=== PATIENT | female | born 1995 | race Caucasian/White ===

== ENCOUNTER 2017-03-30 08:31 | Emergency (ER) | payer MEDICAID ==
--- NOTE | 2017-03-30 09:58 | ED Physician Chart ---
Chief Complaint/HPI - Patient Information Date Seen:: 03/30/17 Time Seen:: 09:00 Chief Complaint:: diarrhea. History of Present Illness:: location: general quality: diarrhea severity: mild duration: couple of days context: pt with couple of days history of diarrhea and abdominal cramping sensation. , and two children have similar symptoms. no vomiting. children have been diagnosed with viral gastroenteritis. no fever. stool is soft brown no blood. mod factors: none assoc s/s: none hx from pt. Allergies:: Allergies Allergy/AdvReac Type Severity Reaction Status Date / Time No Known Allergies Allergy Verified 03/30/17 09:05 Vitals:: Vital Signs - 8 hr 03/30/17 08:45 Temp 97.4 F HR 87 RR 16 BP 117/61 O2 Sat % 97 Historian:: Patient Review:: Nurse's Note Reviewed Review of Systems - Review of Systems General/Constitutional: No fever, No chills, No weight loss, No weakness, No diaphoresis, No edema, No loss of appetite Skin: No skin lesions, No rash, No bruising Head: No headache, No light-headedness Eyes: No loss of vision, No pain, No diplopia ENT: No earache, No nasal drainage, No sore throat, No tinnitus Neck: No neck pain, No swelling, No thyromegaly, No stiffness, No mass noted Cardio Vascular: No chest pain, No palpitations, No PND, No orthopnea, No edema Pulmonary: No SOB, No cough, No sputum, No wheezing GI: No nausea, No vomiting, Diarrhea, No pain, No melena, No hematochezia, No constipation, No hematemesis G/U: No dysuria, No frequency, No hematuria Musculoskeletal: No bone or joint pain, No back pain, No muscle pain Endocrine: No polyuria, No polydipsia Psychiatric: No prior psych history, No depression, No anxiety, No suicidal ideation Hematopoietic: No bruising, No lymphadenopathy Allergic/Immuno: No urticaria, No angioedema Neurological: No syncope, No focal symptoms, No weakness, No paresthesia, No headache, No seizure, No dizziness, No confusion, No vertigo Past Medical History - Past Medical History Past Medical History: No significant medical hx Family History: None Social History: Non Smoker, No Alcohol, No Drug Use Surgical History: None Psychiatricy History: None Medication: None Family Medical History - Family Member Mother Hx Family Diabetes: Yes Physical Exam - Physical Examination General/Constitutional: Awake, Well-developed, well-nourished, Alert, No distress, GCS 15, Non-toxic appearing, Ambulatory Head: Atraumatic Eyes: Lids, conjuctiva normal, PERRL, EOMI Skin: Nl inspection, No rash, No skin lesions, No ecchymosis, Well hydrated, No lymphadenopathy ENMT: External ears, nose nl, Nasal exam nl, Lips, teeth, gums nl Neck: Nontender, Full ROM w/o pain, No JVD, No nuchal rigidity, No bruit, No mass, No stridor Respiratory: Nl effort/Exclusion, Clear to Auscultation, No Wheeze/Rhonchi/Rales Cardio Vascular: RRR, No murmur, gallop, rubs, NL S1 S2 GI: No tenderness/rebounding/guarding (hyperactive bowel sounds all quadrants, no tenderness), No organomegaly, No hernia, Normal BS's, Nondistended, No mass/ bruits, No McBurney tenderness : No CVA tenderness Extremities: No tenderness or effusion, Full ROM, normal strength in all extremities, No edema, Normal digits & nails Neuro/Psych: Alert/oriented, Normal sensory exam, Normal motor strength, Judgement/insight normal, Mood normal, Normal gait, No focal deficits Misc: normal gait, Normal back, No paraspinal tenderness ED Septic Shock - . Is Septic Shock (SBP<90, OR Lactate>4 mmol\L) present?: No - <6hrs of presentation: Vital Signs: Vital Signs - 8 hr 03/30/17 08:45 Temp 97.4 F HR 87 RR 16 BP 117/61 O2 Sat % 97 Reassessment (Disposition) - Reassessment Reassessment:: pt in stable condition during ER stay. Reassessment Condition:: Unchanged - Diagnosis Diagnosis:: gastroenteritis viral - Aftercare/Follow up Instructions Aftercare/Follow-Up Instructions:: Refer to Discharge Instructions Notes:: go to your doctor for a recheck later this week. please take your children to toolroom check[facility] for recheck tomorrow - Patient Disposition Discharge/Transfer:: Home Condition at Disposition:: Stable
== END 2017-03-30 10:49 | disposition home or self-care (01) ==
LOC: ER 08:31
DX: A08.4 Viral intestinal infection, unspecified (principal)
CPT/HCPCS: Z7502

== ENCOUNTER 2017-05-21 10:58 | Emergency (ER) | payer MEDICAID ==
[2017-05-21] MEDS ORDERED: Sodium Chloride 0.9% 1,000 ML IV ONE (11:28)
[2017-05-21] MEDS ORDERED: Morphine Sulfate 4 mg/mL 1mL Syr ONE ×2 (11:28→14:24)
[2017-05-21 11:31] LABS: URINE BILIRUBIN NEGATIVE (NEGATIVE); URINE BLOOD MODERATE (NEGATIVE); URINE COLOR DARK YELLOW; URINE GLUCOSE (UA) NEGATIVE (NEGATIVE); URINE KETONE 15 mg/dL (NEGATIVE); URINE PROTEIN 30 mg/dL (NEGATIVE)
[2017-05-21 11:32] LABS: URINE BACTERIA MANY /hpf (NONE SEEN); URINE EPITHELIAL CELLS FEW /lpf (FEW)
[2017-05-21 11:33] LABS: URINE WBC 50-100 /hpf (0-5)
[2017-05-21 11:38] LABS: AMPHETAMINE URINE NEGATIVE (NEGATIVE); BARBITURATES URINE NEGATIVE (NEGATIVE); METHADONE URINE NEGATIVE (NEGATIVE)
[2017-05-21 11:42] LABS: HEMATOCRIT 42.4 % (35.0-45.0); HEMOGLOBIN 14.2 gm/dL (11.7-15.5); MEAN CELL VOLUME 88.3 fl (81-100); MEAN CORPUSCULAR HEMOGLOBIN 29.5 pg (27.0-31.0); MEAN CORPUSCULAR HGB CONC 33.4 pg (28.0-36.0); MEAN PLATELET VOLUME 8.9 fl; PLATELET COUNT 213 Th/cmm (150-400); RED BLOOD COUNT 4.81 Mil/cmm (3.80-5.10); RED CELL DISTRIBUTION WIDTH 12.8 % (11.5-20.0)
--- NOTE | 2017-05-21 11:47 | ED Physician Chart ---
Chief Complaint/HPI - Patient Information Date Seen:: 05/21/17 Time Seen:: 11:20 Chief Complaint:: RIGHT FLANK PAIN X 3 DAYS History of Present Illness:: This 22-year-old female presents with a three-day history of pains in the region of the right flank and right upper quadrant. The pains are accompanied by nausea and the patient has forced herself to vomit 1 time. She reports anorexia over the past 3 days. She denies any fever, chills, diaphoresis or diarrhea. Patient denies any dysuria, hematuria, or urinary frequency. The patient's last menstrual period started late and was in early March. No abnormal vaginal bleeding. Family history of gallbladder stones in an aunt. The patient rates the pain as 10 over 10 severity and it is made worse by walking and movement. She reports no relieving factors. Allergies:: Allergies Allergy/AdvReac Type Severity Reaction Status Date / Time No Known Allergies Allergy Verified 03/30/17 09:05 NONE Vitals:: Vital Signs - 8 hr 05/21/17 11:09 Temp 99.2 F HR 83 RR 15 BP 120/70 O2 Sat % 100 Review of Systems - Review of Systems General/Constitutional: No fever, No chills, No weakness, No diaphoresis, No edema, Loss of appetite Skin: No skin lesions, No rash, No bruising Head: No headache, No light-headedness Eyes: No loss of vision, No diplopia ENT: No earache, No sore throat, No tinnitus Neck: No neck pain, No swelling, No mass noted Cardio Vascular: No chest pain, No palpitations, No orthopnea Pulmonary: No SOB, No cough, No sputum GI: Nausea, Vomiting, No diarrhea, Pain, No melena, Constipation, No hematemesis G/U: No dysuria, No frequency, No hematuria Welding Specialist: No vaginal discharge, No abnormal vaginal bleed Musculoskeletal: No bone or joint pain, Back pain Endocrine: No polyuria, No polydipsia Psychiatric: No prior psych history, No depression, No suicidal ideation Hematopoietic: No bruising, No lymphadenopathy Allergic/Immuno: No urticaria, No angioedema Neurological: No syncope, No weakness, No headache, No seizure, No confusion Past Medical History - Past Medical History Past Medical History: No significant medical hx Family History: Other (aunt with gallbladder stones.) Social History: Non Smoker, No Alcohol, No Drug Use, Single, Employed Employment:: Occasional alcohol and marijuana. 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 Surgical History: None Family Medical History - Family Member Mother Ethnicity: Hx Family Cancer: No Hx Family Coronary Artery Disease: No Hx Family Hypertension: No Hx Family Diabetes: Yes Hx Family Seizures: No Hx Family Dementia: No Hx Family HIV: No Physical Exam - Physical Examination General/Constitutional: Well-developed, well-nourished, Alert, Non-toxic appearing, Ambulatory Other Gen/Cons comments:: Patient in moderate to severe distress from her complained of right flank and abdominal pain. Head: Atraumatic Eyes: Lids, conjuctiva normal, PERRL, EOMI Skin: No rash, No skin lesions, No ecchymosis ENMT: External ears, nose nl, Lips, teeth, gums nl, Oropharynx nl, Tonsils nl Neck: Nontender, Full ROM w/o pain, No JVD, No nuchal rigidity, No stridor Respiratory: Nl effort/Exclusion, Clear to Auscultation, No Wheeze/Rhonchi/Rales Cardio Vascular: RRR, No murmur, gallop, rubs, NL S1 S2 Other Cardio Vascular comments:: Good pulses all four extremities. GI: No organomegaly, No hernia, Nondistended, No McBurney tenderness Other GI comments:: The abdomen is nondistended and without surgical scars. I'll sounds are present but decreased. On palpation the patient has epigastric and right upper quadrant tenderness without associated rebound regarding. No tenderness in the right lower quadrant. No enlargement of the liver. Aranda's sign was positive. Full Stack Software Developer sign and psoas signs were both negative. Other comments:: Patient with tenderness in the right CVA to light percussion. Extremities: No tenderness or effusion, Full ROM, normal strength in all extremities, No edema Neuro/Psych: Alert/oriented, Normal sensory exam, Normal motor strength, Judgement/insight normal, Mood normal, Normal gait, No focal deficits Other:: no spinal tenderness. Labs/Radiology/EKG Results - Lab Results Results: Laboratory Tests 05/21/17 05/21/17 05/21/17 11:15 11:15 11:15 Urine Source CLEAN C Urine Color DARK YELLOW Urine Clarity HAZY Urine pH 6.0 Ur Specific Gilbert 1.020 Urine Protein 30 H Urine Glucose (UA) NEGATIVE Urine Ketones 15 H Urine Blood MODERATE H Urine Nitrate POSITIVE H Urine Bilirubin NEGATIVE Urine Urobilinogen 1.0 Ur Leukocyte Esterase LARGE H Urine RBC 2-5 Urine WBC 50-100 H Ur Epithelial Cells FEW Urine Bacteria MANY Urine Test NEGATIVE Urine Opiates Screen NEGATIVE Urine Methadone Screen NEGATIVE Ur Barbiturates Screen NEGATIVE Ur Tricyclics Screen NEGATIVE Ur Phencyclidine Scrn NEGATIVE Amphetamines Screen NEGATIVE U Methamphetamines Scrn NEGATIVE U Benzodiazepines Scrn NEGATIVE U Cocaine Metab Screen NEGATIVE U Cannabinoids Screen POSITIVE H Ultrasound of the right upper quadrant was negative for cholelithiasis. There was no thickening of the gallbladder wall and no. Colic fluid was present. An incidental cyst was noted in the left kidney. Laboratory Tests 05/21/17 05/21/17 05/21/17 11:15 11:15 11:15 WBC RBC Hgb Hct MCV MCH MCHC Differential RDW Plt Count MPV Band Neutrophils % Neutrophils (Manual) Lymphocytes Monocytes Platelet Estimate Sodium Potassium Chloride Carbon Dioxide Anion Gap BUN Creatinine Est GFR ( Amer) Est GFR (Non-Af Amer) BUN/Creatinine Ratio Glucose Whole Bld Lactic Acid Calcium Total Bilirubin AST ALT Alkaline Phosphatase Total Protein Albumin Globulin Albumin/Globulin Ratio Amylase Lipase Urine Source CLEAN C Urine Color DARK YELLOW Urine Clarity HAZY Urine pH 6.0 Ur Specific Gilbert 1.020 Urine Protein 30 H Urine Glucose (UA) NEGATIVE Urine Ketones 15 H Urine Blood MODERATE H Urine Nitrate POSITIVE H Urine Bilirubin NEGATIVE Urine Urobilinogen 1.0 Ur Leukocyte Esterase LARGE H Urine RBC 2-5 Urine WBC 50-100 H Ur Epithelial Cells FEW Urine Bacteria MANY Urine Test NEGATIVE Urine Opiates Screen NEGATIVE Urine Methadone Screen NEGATIVE Ur Barbiturates Screen NEGATIVE Ur Tricyclics Screen NEGATIVE Ur Phencyclidine Scrn NEGATIVE Amphetamines Screen NEGATIVE U Methamphetamines Scrn NEGATIVE U Benzodiazepines Scrn NEGATIVE U Cocaine Metab Screen NEGATIVE U Cannabinoids Screen POSITIVE H 05/21/17 05/21/17 05/21/17 11:35 11:35 12:16 WBC 14.3 H RBC 4.81 Hgb 14.2 Hct 42.4 MCV 88.3 MCH 29.5 MCHC Differential 33.4 RDW 12.8 Plt Count 213 MPV 8.9 Band Neutrophils % 1 Neutrophils (Manual) 82 H Lymphocytes 12 L Monocytes 4 Platelet Estimate ADEQUATE Sodium 134 L Potassium 3.7 Chloride 104 Carbon Dioxide 22.9 Anion Gap 10.8 BUN 6 L Creatinine 0.8 Est GFR ( Amer) > 60.0 Est GFR (Non-Af Amer) > 60.0 BUN/Creatinine Ratio 7.5 Glucose 87 Whole Bld Lactic Acid 0.82 Calcium 10.5 H Total Bilirubin 0.9 AST 17 ALT 10 Alkaline Phosphatase 75 Total Protein 8.5 H Albumin 5.0 Globulin 3.5 Albumin/Globulin Ratio 1.4 Amylase 40 Lipase 7 L Urine Source Urine Color Urine Clarity Urine pH Ur Specific Gilbert Urine Protein Urine Glucose (UA) Urine Ketones Urine Blood Urine Nitrate Urine Bilirubin Urine Urobilinogen Ur Leukocyte Esterase Urine RBC Urine WBC Ur Epithelial Cells Urine Bacteria Urine Test Urine Opiates Screen Urine Methadone Screen Ur Barbiturates Screen Ur Tricyclics Screen Ur Phencyclidine Scrn Amphetamines Screen U Methamphetamines Scrn U Benzodiazepines Scrn U Cocaine Metab Screen U Cannabinoids Screen Laboratory Tests 05/21/17 05/21/17 05/21/17 11:15 11:15 11:15 WBC RBC Hgb Hct MCV MCH MCHC Differential RDW Plt Count MPV Band Neutrophils % Neutrophils (Manual) Lymphocytes Monocytes Platelet Estimate Sodium Potassium Chloride Carbon Dioxide Anion Gap BUN Creatinine Est GFR ( Amer) Est GFR (Non-Af Amer) BUN/Creatinine Ratio Glucose Whole Bld Lactic Acid Calcium Total Bilirubin AST ALT Alkaline Phosphatase Total Protein Albumin Globulin Albumin/Globulin Ratio Amylase Lipase Urine Source CLEAN C Urine Color DARK YELLOW Urine Clarity HAZY Urine pH 6.0 Ur Specific Gilbert 1.020 Urine Protein 30 H Urine Glucose (UA) NEGATIVE Urine Ketones 15 H Urine Blood MODERATE H Urine Nitrate POSITIVE H Urine Bilirubin NEGATIVE Urine Urobilinogen 1.0 Ur Leukocyte Esterase LARGE H Urine RBC 2-5 Urine WBC 50-100 H Ur Epithelial Cells FEW Urine Bacteria MANY Urine Test NEGATIVE Urine Opiates Screen NEGATIVE Urine Methadone Screen NEGATIVE Ur Barbiturates Screen NEGATIVE Ur Tricyclics Screen NEGATIVE Ur Phencyclidine Scrn NEGATIVE Amphetamines Screen NEGATIVE U Methamphetamines Scrn NEGATIVE U Benzodiazepines Scrn NEGATIVE U Cocaine Metab Screen NEGATIVE U Cannabinoids Screen POSITIVE H 05/21/17 05/21/17 05/21/17 11:35 11:35 12:16 WBC 14.3 H RBC 4.81 Hgb 14.2 Hct 42.4 MCV 88.3 MCH 29.5 MCHC Differential 33.4 RDW 12.8 Plt Count 213 MPV 8.9 Band Neutrophils % 1 Neutrophils (Manual) 82 H Lymphocytes 12 L Monocytes 4 Platelet Estimate ADEQUATE Sodium 134 L Potassium 3.7 Chloride 104 Carbon Dioxide 22.9 Anion Gap 10.8 BUN 6 L Creatinine 0.8 Est GFR ( Amer) > 60.0 Est GFR (Non-Af Amer) > 60.0 BUN/Creatinine Ratio 7.5 Glucose 87 Whole Bld Lactic Acid 0.82 Calcium 10.5 H Total Bilirubin 0.9 AST 17 ALT 10 Alkaline Phosphatase 75 Total Protein 8.5 H Albumin 5.0 Globulin 3.5 Albumin/Globulin Ratio 1.4 Amylase 40 Lipase 7 L Urine Source Urine Color Urine Clarity Urine pH Ur Specific Gilbert Urine Protein Urine Glucose (UA) Urine Ketones Urine Blood Urine Nitrate Urine Bilirubin Urine Urobilinogen Ur Leukocyte Esterase Urine RBC Urine WBC Ur Epithelial Cells Urine Bacteria Urine Test Urine Opiates Screen Urine Methadone Screen Ur Barbiturates Screen Ur Tricyclics Screen Ur Phencyclidine Scrn Amphetamines Screen U Methamphetamines Scrn U Benzodiazepines Scrn U Cocaine Metab Screen U Cannabinoids Screen CBC showed moderate leukocytosis with no evidence of anemia. Renal and hepatic function tests were normal. Urine test was negative. The UA showed many bacteria and white blood cells. Assessment - Assessment General Assessment: CASE SUMMARY: this 22-year-old female presents with a three day history of pain in the right upper quadrant in the right flank. She denied any associated fever or chills. Her last menstrual. Was early in March. The patient has had constipation for one week, nausea with one episode of vomiting. Patient denied any dysuria, hematuria or urinary frequency. Patient denied any fever or chills. Laboratory studies showed the patient had a moderate leukocytosis, normal renal function in normal liver function. An ultrasound study of the abdomen was negative for cholelithiasis or cholecystitis. There was an incidental left renal cyst that was noted. The urinalysis was positive for many bacteria and white blood cells. A diagnosis of right pyelonephritis was made patient was treated with IV fluids and IV ceftriaxone. Patient was feeling much better following IV Zofran and IV morphine and she was discharged with prescription for cephalexin. She was also provided a prescription for [place] with the usual precautions regarding mixing it with alcohol, driving in activities requiring alertness. She was advised to return to the emergency department if her symptoms significantly worsened. Discharged in stable condition. MDM RT ABDOMINAL AND RT FLANK PAIN: NOT Biliary colic or cholecystitis based on ultrasound exam. NOT Pancreatitis based on normal lipase and amylase levels. NOT Ectopic based on negative testing. 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 ED Septic Shock - . Is Septic Shock (SBP<90, OR Lactate>4 mmol\L) present?: No - <6hrs of presentation: Vital Signs: Vital Signs - 8 hr 05/21/17 11:09 Temp 99.2 F HR 83 RR 15 BP 120/70 O2 Sat % 100 Reassessment (Disposition) - Reassessment Reassessment Condition:: Improved - Diagnosis Diagnosis:: ACUTE PYELONEPHRITIS RT KIDNEY. - Aftercare/Follow up Instructions Aftercare/Follow-Up Instructions:: Counseled pt regarding lab results/diagnosis & need follow up, Counseled pt & family regarding lab results/diagnosis & need follow up ED Discharge Plan - Patient Disposition Admit/Discharge/Transfer: PT DISCHARGED HOME Condition at Disposition: Stable Instructions: Pyelonephritis, Adult, [id number]
[2017-05-21 11:58] LABS: ALB/GLOB RATIO 1.4 (1.0-1.8); ALKALINE PHOSPHATASE 75 U/L (34-104); AMYLASE SERUM 40 U/L (29-103); ANION GAP 10.8 (7.0-16.0); BILIRUBIN,TOTAL 0.9 mg/dL (0.3-1.0); BUN - UREA NITROGEN 6 mg/dL (7-25); BUN/CREATININE RATIO 7.5; CALCIUM SERUM 10.5 mg/dL (8.6-10.3); CARBON DIOXIDE 22.9 mEq/L (21.0-31.0); CHLORIDE 104 mEq/L (98-107); CREATININE - SERUM 0.8 mg/dL (0.6-1.2); GLUCOSE 87 mg/dL (70-105); LIPASE 7 U/L (11-82); POTASSIUM SERUM 3.7 mEq/L (3.5-5.1); SGOT 17 U/L (13-39); SGPT/ALT 10 U/L (7-52); SODIUM SERUM 134 mEq/L (136-145)
[2017-05-21 12:03] LABS: WHITE BLOOD COUNT 14.3 Th/cmm (4.8-10.8)
[2017-05-21 12:04] LABS: BAND NEUTROPHILE 1 % (0-10); NEUTROPHILS 82 % (40-80); PLATELET ESTIMATE ADEQUATE (NORMAL)
[2017-05-21] MEDS ORDERED: cefTRIAXone 2 GM in Sodium Chloride 0.9% 100 ML IV ONE (13:12)
--- NOTE | 2017-05-22 11:26 | Diagnostic Imaging Report ---
Exam: Ultrasound examination of the abdomen HISTORY abdominal pain. Findings Real-time ultrasound examination of the abdomen performed multiple planes. The study demonstrates normal echogenicity liver parenchyma. The gallbladder free of calculi the common bile duct measures 3 mm. The pancreas is normal. There is no evidence of obstructive uropathy or nephrolithiasis. Right kidney measures 10.9 x 5.5 x 5.1 cm. Left kidney measures 10.3 x 4.9 x 4.5 cm. A small left renal cyst measuring 1.5 cm appreciated in left upper renal pole. The pancreas is intact no free fluid is noted. IMPRESSION: Normal examination the abdomen
== END 2017-05-21 15:15 | disposition home or self-care (01) ==
LOC: ER 10:58
DX: N10 Acute pyelonephritis (principal); F12.90 Cannabis use, unspecified, uncomplicated
CPT/HCPCS: 99285; 96365; 96375; 96376; 76705; 36415; 83605; 80307; 85007; 85027; 87086; 81001; 82150; 81025; 83690; 80053; 87040 ×2; J2405; J0696; J7030